=== PATIENT | male | born 1940 ===

== ENCOUNTER 2017-11-05 18:23 | Emergency (ER) | payer MEDICARE, MEDICAID ==
[2017-11-05 18:23] VITALS: BMI 14.0
--- NOTE | 2017-11-05 19:08 | C.PDOC ---
History Of Present Illness 77 y/o M c PMHx ESRD on HD MWF p/w chest pain, shortness of breath, back pain, general weakness x years (since I've been on dialysis.) Denies fever, chills, cough, dysuria, vomiting. Time Seen by Provider: 11/05/17 18:57 Chief Complaint (Nursing): Chest Pain Past Medical History Vital Signs: Last Vital Signs Temp 97.1 F L 11/05/17 18:32 Pulse 76 11/05/17 20:44 Resp 20 11/05/17 20:44 BP 162/94 H 11/05/17 20:44 Pulse Ox 100 11/05/17 20:44 - Medical History PMH: Anemia, Arthritis, CHF, HIV, HTN, Hypothyroidism, Chronic Kidney Disease Surgical History: CABG - [facility] (05/12/17) GAIT TRAINING/AMBULAT TREATMENT USING ASSIST EQUIPMENT (04/02/15) HOME MANAGEMENT TREATMENT USING ASSIST EQUIPMENT (04/02/15) INSPECTION OF UPPER INTESTINAL TRACT, ENDO (05/12/17) MEASURE OF CARDIAC SAMPL & PRESSURE, L HEART, PERC APPROACH (03/28/15) PERFORMANCE OF URINARY FILTRATION, MULTIPLE (04/27/15) PERFORMANCE OF URINARY FILTRATION, SINGLE (08/09/15) PLAIN RADIOGRAPHY OF MULT COR ART USING OTH CONTRAST (03/28/15) TRANSFUSE NONAUT RED BLOOD CELLS IN PERIPH VEIN, PERC (05/12/17) Family History: States: No Known Family Hx - Social History Hx Alcohol Use: Yes (quit 30/40 yrs ago) Hx Substance Use: Yes (quit "all kinds of drugs" 30/40 yrs ago) - Immunization History Hx Tetanus Toxoid Vaccination: Yes Hx Influenza Vaccination: Yes Hx Pneumococcal Vaccination: Yes Review Of Systems Except As Marked, All Systems Reviewed And Found Negative. Constitutional: Negative for: Fever Respiratory: Negative for: Cough Physical Exam - Physical Exam Additional Physical Exam Comments: Gen: Thin, frail appearing male Head: NC/AT Eyes: PERRL ENT: MMM Neck: Supple Chest: No tenderness CV: Regular rate Lungs: CTA b/l Abd: Soft, NT Back: No CVA tenderness Extremities: Thin, no edema, L arm fistula Skin: No rash Neuro: Alert, no focal deficit ED Course And Treatment O2 Sat by Pulse Oximetry: 99 Against Medical Advice - AMA Patient Left Against Medical Advice: The patient declines admission to the hospital and wishes to leave the Emergency Department. This action is against my medical advice. This decision was made with informed refusal. The patient was told that admission to the hospital is necessary. Explanation of the reasons why were discussed. The risks of leaving were explained to the patient and include, but are not limited to, worsening of known or currently unknown conditions, permanent disability and from undiagnosed or untreated conditions. The patient has the capacity to make this informed decision and understands my explanation of the current medical problem and risks of leaving. The patient voluntarily accepts these risks and signed an AMA form documenting our conversation. The patient was given the opportunity to ask questions and reconsider. The patient was encouraged to return to the Emergency Department at any time for further care. Medical Decision Making Medical Decision Making: EKG NSR 70 bpm, LAD, prolonged QTc 505, T wave inversions laterally, unchanged from previous Patient's blood pressure returned to his baseline without intervention. Patient states his breathing is improved. Blood draw was attempted multiple times by nursing staff without success. Patient initially refused but the consented to central line placement and concomitant blood draw. I attempted to place R IJ but patient could not tolerate and instructed me to stop. Morphine IM administered for pain. I offered to attempt central line again in either same place or different location , but patient refused. I informed patient that I can not know what treatment he requires without labs and he can not be admitted without labs. He understood but wished to go home without further evaluation. I informed him that he can return at any time, and he stated that he would be sure to go to dialysis as scheduled tomorrow. Disposition - Disposition Disposition: AGAINST MEDICAL ADVICE Disposition Time: 21:40 Condition: UNKNOWN Instructions: Hemodialysis (DC) Forms: [employer] (Swiss) - Clinical Impression Clinical Impression: Dyspnea, Chest pain
[2017-11-05 20:12] VITALS: RESP 20
[2017-11-05 20:45] VITALS: BP 162/94
[2017-11-05] MEDS ORDERED: Morphine 4 MG/ML VIAL ONE (20:54)
[2017-11-05 21:43] VITALS: O2SAT 99
[2017-11-05 22:41] VITALS: PULSE 78; TEMP 98.6
--- NOTE | 2017-11-06 11:31 | RAD ---
Chest x-ray single frontal view History: Chest pain. Dyspnea. Comparison: 11/05/2017 Findings: Biapical pleural thickening with upper lobe granulomatous changes. Moderate to severe venous congestion. Prominent bibasilar airspace opacities with small bilateral pleural effusions. Cardiomegaly. Calcification at the aortic knob with calcifications throughout the aorta. IVC filter in place. Surgical clips project over the heart and upper abdomen. Degenerative changes in the spine. Prominent axillary vascular calcifications. Impression: Biapical pleural thickening with upper lobe granulomatous changes. Moderate to severe venous congestion. Prominent bibasilar airspace opacities with small bilateral pleural effusions. Cardiomegaly. Calcification at the aortic knob with calcifications throughout the aorta. IVC filter in place. Surgical clips project over the heart and upper abdomen. Degenerative changes in the spine. Prominent axillary vascular calcifications.
--- NOTE | 2017-11-07 17:42 | CARD ---
APPROVED REPORT Date of service: 11/05/2017 EKG Measurement Heart [id number] MD [id number] <Conclusion> Normal sinus rhythm Left axis deviation Left ventricular hypertrophy with repolarization abnormality Cannot rule out Septal infarct, age undetermined Prolonged QT Abnormal ECG
== END 2017-11-05 22:42 | disposition left against medical advice (07) ==
LOC: C.ER 18:23
DX: R07.9 Chest pain, unspecified (principal); R06.00 Dyspnea, unspecified; I13.0 Hypertensive heart and chronic kidney disease with heart failure and stage 1 through stage 4 chronic kidney disease, or unspecified chronic kidney disease; I50.9 Heart failure, unspecified; N18.9 Chronic kidney disease, unspecified; F17.210 Nicotine dependence, cigarettes, uncomplicated; Z95.1 Presence of aortocoronary bypass graft
CPT/HCPCS: 71045; 82948; 93005; 96372; 99285; J2270